=== PATIENT | male | born 1940 | race Caucasian/White ===

== ENCOUNTER → 2018-04-09 | Outpatient (CLI) | payer MEDICARE, OTHER ==
[~2018-04-09] MED LIST: ANDROGEL75 GM; ASA325 PO; LISINOPRIL10 MG PO; MEGACE40 MG PO; NRC7.5T PO; TESTOSTERONE5 GM; XARELTO20 MG PO; Z.0.LISINOPRIL20 MG PO; Z.0.NORVASC5 MG PO
--- NOTE | 2018-04-09 15:25 | Diagnostic Imaging Report ---
PROCEDURE: CT ABDOMEN AND PELVIS WITHOUT CONTRAST TECHNIQUE: The abdomen and pelvis were scanned utilizing a multidetector helical scanner from the diaphragm to the lesser trochanter after the oral administration of water. No IV contrast was administered per physician's request. Coronal and sagittal multiplanar reformations were obtained. COMPARISON: Patients [facility], CT, CT ABDOMEN/PELVIS , 10/18/2013, 13:57. INDICATIONS: HEMATURA FINDINGS: ABSENCE OF INTRAVENOUS CONTRAST DECREASES SENSITIVITY FOR DETECTION OF FOCAL LESIONS AND VASCULAR PATHOLOGY. LOWER THORAX: Mild bilateral lower lobe subpleural reticulation and bronchiectatic changes, which are slightly worsened since prior exam, consistent with mild fibrotic changes. HEPATOBILIARY: Stable 2.8 x 2.3 cm fluid density simple cyst in hepatic segment IV (series 3, image 34). Stable 1.1 x 1.0 cm fluid density simple cyst in hepatic segment VII (series 3, image 34). Normal hepatic size, and contour. No other focal lesions. No biliary ductal dilation. The bladder is unremarkable. SPLEEN: No splenomegaly. PANCREAS: No focal masses or ductal dilatation. ADRENALS: No adrenal nodules. KIDNEYS/URETERS: Right: New 2 mm nonobstructing calculus in the superior to mid aspect (series 3, image 53). No other renal or any ureteral calculi, hydronephrosis, or obstruction. 2.4 x 2.2 x 2.9 cm mostly exophytic fluid density simple cyst in the inferior pole (series 3, image 81). No other contour abnormalities or perinephric stranding. Left: No renal or ureteral calculi, hydronephrosis, or obstruction. No contour abnormalities. PELVIC ORGANS/BLADDER: The evaluation of the pelvis is limited by beam hardening artifact from right hip prosthesis. Visualized portions of the bladder are grossly unremarkable. Mild prostatic enlargement. Left pelvic phleboliths. PERITONEUM / RETROPERITONEUM: No free air or fluid. LYMPH NODES: No lymphadenopathy. VESSELS: Minimal atherosclerotic calcification of the distal abdominal aorta. GI TRACT: No bowel dilation or evidence of obstruction. Appendix is well identified and normal in caliber. BONES AND SOFT TISSUES: No acute bony abnormalities. No aggressive lytic lesions. Right total hip replacement. Degenerative changes in the lower thoracic and lumbosacral spine, worse at L4-L5, and L5-S1. Facet hypertrophy L3-S1. Small fat containing left femoral hernia. IMPRESSION: 1. new 2 mm nonobstructing calculus in the superior to mid right kidney. No other renal or any ureteral calculi, hydronephrosis, or obstruction. 2. Stable simple hepatic cysts. 3. Slight worsening of bilateral lower lobe subpleural reticulation and bronchiectasis, consistent with fibrotic changes. Teddy Kumar M.D. Dictated by: Teddy Kumar M.D. on 04/09/2018 at 15:29 Electronically approved by: Teddy Kumar M.D. on 04/09/2018 at 15:29
== END ==
LOC: CT 14:35
PROVIDERS: ATTEND Urology
DX: R31.0 Gross hematuria (principal)
CPT/HCPCS: 74176

== ENCOUNTER 2020-02-22 09:52 | Inpatient (IN) | payer MEDICARE, OTHER ==
[~2020-02-22] VITALS: Ht 180.3 cm; Wt 100.7 kg
[~2020-02-22 09:52] MED LIST changes: +COUMADIN3 MG PO; +MAXZIDE 37.5 M1 EACH PO; +TESTOSTERO30 MG/1.5 INJ
[2020-02-22] MEDS ORDERED: SODIUM CHLORIDE 0.9% 1000ML 1,000 ML IV STA (09:57)
[2020-02-22] MEDS ORDERED: ONDANSETRON HCL INJ 2MG/ML 2ML 2 MG/ML VIAL IV STA (09:57)
[2020-02-22] MEDS ORDERED: MORPHINE SULFATE INJ 4 MG/ML INJ 1ML IV STA (10:06)
[2020-02-22] MEDS ORDERED: MORPHINE SULFATE INJ 4 MG/ML INJ 1ML ONE (10:11)
[2020-02-22 10:31] LABS: CLARITY,URINE CLOUDY (CLEAR); COLOR,URINE ORANGE (YELLOW)
[2020-02-22 10:32] LABS: KETONES,URINE NEGATIVE (NEGATIVE); LEUKOCYTE ESTERASE ,URINE NEGATIVE (NEGATIVE); NITRITE,URINE NEGATIVE (NEGATIVE); PROTEIN,URINE DIPSTICK 1+ (NEGATIVE)
[2020-02-22 10:33] LABS: BILIRUBIN,URINE NEGATIVE (NEGATIVE); INR 0.96; PROTHROMBIN TIME 13.3 seconds (11.9-14.5); URINE UROBILINOGEN 0.2 mg/dL (0.2 - 1)
[2020-02-22 10:34] LABS: PARTIAL THROMBOPLASTIN TIME 32.8 seconds (23.8-35.5)
[2020-02-22 10:41] LABS: ALBUMIN 3.8 g/dL (3.5-5.0); ANION GAP 15.4 mmol/L (8-16); CALCIUM 9.6 mg/dL (8.4-10.2); CREATININE, SERUM 1.21 mg/dL (0.72-1.25); MAGNESIUM 2.1 MG/DL (1.3-2.1); POTASSIUM 4.4 mmol/L (3.5-5.1)
[2020-02-22 10:44] LABS: BACTERIA,URINE FEW /HPF; EPITHELIAL CELLS,URINE FEW /LPF; RBC,URINE >50 /HPF (0-5); WBC,URINE (MAN) >50 /HPF (0-5)
[2020-02-22 10:48] LABS: CREATINE KINASE MB 9.3 ng/mL (0-5.0)
--- NOTE | 2020-02-22 11:18 | Diagnostic Imaging Report ---
EXAMINATION: CHEST SINGLE (PORTABLE) INDICATION: Abdominal pain COMPARISON: None FINDINGS: LINES/TUBES:None LUNGS:The lungs are moderately inflated. Hazy left lung base opacities. PLEURA:No pleural effusion or pneumothorax. MEDIASTINUM:Mild cardiomegaly. BONES/SOFT TISSUES:No acute osseous injury. ABDOMEN:No free air under the diaphragm. IMPRESSION: Hazy left lung base opacities may represent aspiration and/or pneumonia in the proper clinical setting. Signed by: Vlad Mckinney MD on 02/22/2020 11:15 AM
--- NOTE | 2020-02-22 11:25 | Diagnostic Imaging Report ---
EXAM: CT Abdomen and Pelvis WITHOUT intravenous contrast INDICATION: Abdominal pain COMPARISON: Chest radiograph of the same day TECHNIQUE: Abdomen and pelvis were scanned utilizing a multidetector helical scanner from the lung base to the pubic symphysis without administration of IV contrast. Coronal and sagittal reformations were obtained. IV CONTRAST: None ORAL CONTRAST: Water COMPLICATIONS: None RADIATION DOSE: Total DLP: 800 mGy*cm Dose modulation, iterative reconstruction, and/or weight based adjustment of the mA/kV was utilized to reduce the radiation dose to as low as reasonably achievable. FINDINGS: LOWER THORAX: Reticular dependent left lower lobe and to a lesser extent right lower lobe opacities. Mild cardiomegaly. HEPATOBILIARY: 2.6 cm anterior right hepatic cyst. No other focal liver lesion. Unremarkable gallbladder. SPLEEN: No splenomegaly. PANCREAS: No focal masses or ductal dilatation. ADRENALS: No adrenal nodules. KIDNEYS/URETERS: 4 mm mid right ureteral calculus. Minimal right hydronephrosis. 2.9 cm right lower pole exophytic renal cyst. No left urinary calculi. Exophytic 2.0 cm left upper pole renal cyst. PELVIC ORGANS/BLADDER: Unremarkable. PERITONEUM / RETROPERITONEUM: No free air or fluid. LYMPH NODES: No lymphadenopathy. VESSELS: Unremarkable. GI TRACT: Diverticulosis without CT evidence of diverticulitis. No abnormal bowel thickening. No bowel obstruction. Normal appendix. BONES AND SOFT TISSUES: No acute osseous injury. No suspicious lytic or blastic lesions. Status post right total hip replacement. Degenerative changes of the visualized spine. IMPRESSION: 4 mm mid right ureteral calculus with associated minimal right hydronephrosis. No left urinary calculi. Reticular left lower lobe and to a lesser extent right lower lobe opacities likely represent chronic interstitial changes however superimposed aspiration or pneumonia could also have this appearance in the proper clinical setting. Signed by: Vlad Mckinney MD on 02/22/2020 11:22 AM
[2020-02-22] MEDS ORDERED: CEFTRIAXONE SOD 1 GM/NS 50 ML 50 ML IV ONE (11:30)
[2020-02-22] MEDS ORDERED: KETOROLAC TROMETHAMINE 30 MG/ML VIAL IV ONE (11:35)
[2020-02-22 11:39] LABS: BASOPHILS % 0.5 % (0.0-1.0); EOSINOPHILS # (AUTO) 0.1 (0.0-0.4); EOSINOPHILS % 0.7 % (0.0-6.0); HEMOGLOBIN 17.9 g/dL (14.0-18.0); LYMPHOCYTES # (AUTO) 1.3 (1.0-3.2); LYMPHOCYTES % 16.8 % (18.0-39.1); MEAN CORPUSCULAR HEMOGLOBIN 29.5 pg (28-32); MEAN CORPUSCULAR HGB CONC 32.5 g/dL (31-35); MEAN CORPUSCULAR VOLUME 90.8 fL (81-99); MONOCYTES # (AUTO) 0.8 (0.2-0.8); MONOCYTES % 11.1 % (4.4-11.3); NEUTROPHILS # (AUTO) 5.3 (2.1-6.9); NEUTROPHILS % 70.4 % (38.7-80.0); PLATELET COUNT 258 x10e3/uL (140-360); RED BLOOD COUNT 6.06 x10e6/uL (4.3-5.7); RED CELL DISTRIBUTION WIDTH 14.5 % (11.7-14.4)
[2020-02-22] MEDS ORDERED: MORPHINE SULFATE 2 MG/ML SYR 1ML IV PRN (12:00)
[2020-02-22] MEDS ORDERED: ONDANSETRON HCL INJ 2MG/ML 2ML 2 MG/ML VIAL IV PRN (12:00)
[2020-02-22] MEDS: MORPHINE SULFATE INJ 4 MG/ML INJ 1ML IV PRN ×2 (14:14→22:14)
[2020-02-22] MEDS: SODIUM CHLORIDE 0.9% 1000ML 1,000 ML IV SCH ×2 (14:14→22:14)
[2020-02-22 17:07] LABS: CREATINE KINASE MB 6.9 ng/mL (0-5.0)
--- NOTE | 2020-02-22 18:30 | NUR ---
RCD PT FROM ER BY WHEEL CHAIR PT IS ALERT AND ORIENTED VITALS CHECKED PT RESTING ON BED ,BED SIDE REPORT GIVEN TO ONCOMING NURSE
--- NOTE | 2020-02-22 19:00 | NUR ---
Received bedside shift report from day rn. pt admitted from er at 1830. Pt is alert and oriented x3. Respirations are regular and unlabored.Tele on. piv 20 g lt ac. ns infusing at 100 ml/hr. site healthy. pt instructed to use urinal when void and all urine to be strained.denies pain. call light witnin reach. bed in low position.
[2020-02-22 20:00] VITALS: BP 146/93
[2020-02-22] MEDS: CEFTRIAXONE SOD 1 GM/NS 50 ML 50 ML IV SCH (22:13)
[2020-02-22 23:45] VITALS: BP 146/93
[2020-02-23] MEDS: MORPHINE SULFATE INJ 4 MG/ML INJ 1ML IV PRN (03:14)
[2020-02-23 03:40] LABS: CREATINE KINASE MB 9.7 ng/mL (0-5.0)
[2020-02-23 05:38] LABS: BASOPHILS % 0.1 % (0.0-1.0); EOSINOPHILS % 0.1 % (0.0-6.0); HEMATOCRIT 50.5 % (38.2-49.6); HEMOGLOBIN 16.7 g/dL (14.0-18.0); LYMPHOCYTES # (AUTO) 0.6 (1.0-3.2); LYMPHOCYTES % 3.9 % (18.0-39.1); MEAN CORPUSCULAR HEMOGLOBIN 29.5 pg (28-32); MEAN CORPUSCULAR HGB CONC 33.1 g/dL (31-35); MEAN CORPUSCULAR VOLUME 89.2 fL (81-99); MONOCYTES # (AUTO) 1.3 (0.2-0.8); MONOCYTES % 9.1 % (4.4-11.3); NEUTROPHILS # (AUTO) 12.3 (2.1-6.9); NEUTROPHILS % 86.4 % (38.7-80.0); PLATELET COUNT 201 x10e3/uL (140-360); RED BLOOD COUNT 5.66 x10e6/uL (4.3-5.7); RED CELL DISTRIBUTION WIDTH 14.5 % (11.7-14.4)
[2020-02-23 05:45] LABS: ALBUMIN 3.3 g/dL (3.5-5.0); ALBUMIN/GLOBULIN RATIO 0.9 (0.8-2.0); ANION GAP 11.6 mmol/L (8-16); CALCIUM 8.2 mg/dL (8.4-10.2); CREATININE, SERUM 1.45 mg/dL (0.72-1.25); POTASSIUM 4.6 mmol/L (3.5-5.1)
--- NOTE | 2020-02-23 07:00 | NUR ---
RCD PT AT BED PT IS ALERT AND ORIENTED RESTING ON BED IV PATENT BY SALINE FLUSH BED LOW AND LOCKED CALL LIGHT IN REACH
[2020-02-23 07:10] VITALS: BP 132/97
[2020-02-23] MEDS ORDERED: FLONASE ALLERG9.9 ML (07:19)
[2020-02-23] MEDS ORDERED: ASTELIN (07:19)
[2020-02-23 08:20] VITALS: BP 128/81
[2020-02-23 08:37] VITALS: BP 128/81
[2020-02-23] MEDS: CEFTRIAXONE SOD 1 GM/NS 50 ML 50 ML IV SCH ×2 (09:36→22:50)
[2020-02-23 11:51] VITALS: BP 137/93
--- NOTE | 2020-02-23 12:00 | NUR ---
PT PASSED A SMALL STONE PAGED DR WERNER TO NOTIFY THAT
--- NOTE | 2020-02-23 12:26 | Diagnostic Imaging Report ---
Exam: KUB - 2 views Indication: Renal calculi Comparison: CT abdomen and pelvis 02/22/2020 Findings: No radiographically apparent renal calculi. 4 mm right ureteral calculus seen on the recent CT of 02/22/2020 is not as well appreciated on these radiographs. Nonobstructive bowel gas pattern. No free air. No acute osseous injury. Status post right total hip replacement. Degenerative changes of the visualized spine and left hip joint. Impression: No radiographically apparent renal calculi. 4 mm right ureteral calculus seen on recent CT is not as well appreciated on these radiographs. Signed by: Vlad Mckinney MD on 02/23/2020 12:23 PM
--- NOTE | 2020-02-23 12:30 | NUR ---
DR WERNER RETURNED THE CALL HE SAID PROBABLY ITS NOT REAL STONE PREPARE THE PT FOR SURGERY HE WILL DECIDE ON TOMORROW
--- NOTE | 2020-02-23 16:00 | NUR ---
PT GOING FOR PROCEDURE ON TOMORROW SIGNED CONSENT ,NPO AFTER MIDNIGHT
[2020-02-23 16:59] VITALS: BP 128/92
[2020-02-23 17:27] LABS: CREATINE KINASE MB 2.9 ng/mL (0-5.0)
--- NOTE | 2020-02-23 18:57 | NUR ---
PT RESTING ON BED BED SIDE REPORT GIVEN TO ONCOMING NURSE
--- NOTE | 2020-02-23 19:10 | NUR ---
BEDSIDE SHIFT REPORT RECEIVED FROM DAY RN. PT IS ALERT AND ORIENTED X3. AMBULATING IN HALLS. DENIES PAIN. VOIDING PER URINAL - ALL URINE STRAINED. RESPIRATIONS EVEN AND UNLABORED. TELE ON. SL 20G IN LEFT AC. LBM 2 DAYS AGO. URINE BLOODY AT TIMES THEN CLEAR. RESTING IN BED IN SEMI-FOWLERS POSITION WATCHING TV. CALL LIGHT WITHIN REAC. BED LOCKED AND IN LOW POSITION.PT INSTRUCTED WILL BE NPO AFTER 12MN FOR PROCEDURE BY DR CHRISTENSEN IN AM.PT VERBALIZED UNDERSTANDING.
[2020-02-23 20:00] VITALS: BP 137/87
[2020-02-24] VITALS (9 sets, daily range): BP systolic 116–163; BP diastolic 83–97
[2020-02-24] MEDS: MORPHINE SULFATE INJ 4 MG/ML INJ 1ML IV PRN ×2 (00:41→18:28)
[2020-02-24 05:24] LABS: BASOPHILS % 0.4 % (0.0-1.0); EOSINOPHILS # (AUTO) 0.1 (0.0-0.4); EOSINOPHILS % 1.4 % (0.0-6.0); HEMATOCRIT 51.3 % (38.2-49.6); HEMOGLOBIN 16.5 g/dL (14.0-18.0); LYMPHOCYTES % 9.7 % (18.0-39.1); MEAN CORPUSCULAR HEMOGLOBIN 29.3 pg (28-32); MEAN CORPUSCULAR HGB CONC 32.2 g/dL (31-35); MEAN CORPUSCULAR VOLUME 91.1 fL (81-99); MONOCYTES # (AUTO) 1.2 (0.2-0.8); NEUTROPHILS # (AUTO) 7.7 (2.1-6.9); PLATELET COUNT 201 x10e3/uL (140-360); RED BLOOD COUNT 5.63 x10e6/uL (4.3-5.7); RED CELL DISTRIBUTION WIDTH 14.4 % (11.7-14.4)
[2020-02-24 05:57] LABS: ALANINE AMINOTRANSFERASE 14 IU/L (0-55); ALBUMIN 3.1 g/dL (3.5-5.0); ALBUMIN/GLOBULIN RATIO 0.9 (0.8-2.0); ALKALINE PHOSPHATASE 54 IU/L (40-150); ANION GAP 9.5 mmol/L (8-16); BLOOD UREA NITROGEN 20 mg/dL (7-26); BUN/CREATININE RATIO 20 (6-25); CALCIUM 8.5 mg/dL (8.4-10.2); CARBON DIOXIDE 28 mmol/L (22-29); CHLORIDE 105 mmol/L (98-107); CREATININE, SERUM 1.02 mg/dL (0.72-1.25); EST GLOMERULAR FILTRATION RATE > 60 ML/MIN (60-); GLUCOSE 85 mg/dL (74-118); POTASSIUM 4.5 mmol/L (3.5-5.1); SODIUM 138 mmol/L (136-145)
--- NOTE | 2020-02-24 07:03 | NUR ---
BEDSIDE SHIFT REPORT RECEIVED FROM PM NURSE. PT AWAKE, ALERT, ORIENTED, NO SIGNS OF DISTRESS, SITTING UP IN BED, WILL CONTINUE TO MONITOR.
[2020-02-24] MEDS: CEFTRIAXONE SOD 1 GM/NS 50 ML 50 ML IV SCH ×2 (09:39→22:30)
[2020-02-24] MEDS ORDERED: B&O 60MG R/S 60 MG SUPP PR ONE (13:31)
[2020-02-24] MEDS ORDERED: IOPAMIDOL 300MG/ML 50ML INFUS..BTL IV ONE (13:31)
--- NOTE | 2020-02-24 13:47 | NUR ---
PT LEFT FOR OR; LEFT IN STABLE CONDITION.
[2020-02-24] MEDS ORDERED: FENTANYL CITRATE/PF 100MCG/2 ML INJ ONE (15:09)
[2020-02-24] MEDS ORDERED: B&O 60MG R/S 60 MG SUPP PR PRN (15:30)
[2020-02-24] MEDS ORDERED: ACETAMINOPHEN/CODEINE 300MG - 30MG TAB PO PRN (15:30)
--- NOTE | 2020-02-24 15:55 | NUR ---
REPORT FROM RECOVERY: PT HAD CNR, RIGHT URETEROSCOPY WITH STENT PLACEMENT. PT HAS NO C/O PAIN. ORDERED CARDIAC DIET. PT'S LAST VITAL SIGNS- 131/91, HR 86, RESPIRATIONS 16/MIN, 98.8 TEMP, 95% ON RA.
--- NOTE | 2020-02-24 16:07 | Diagnostic Imaging Report ---
OR Fluoroscopy: IMPRESSION: Fluoroscopy service provided in the OR. Interpretation not requested. Signed by: Joey Polanco MD on 02/24/2020 4:04 PM
[2020-02-24] MEDS ORDERED: PHENYLEPHRINE HCL 1% 10 MG/ML VIAL ONE (18:20)
[2020-02-24] MEDS ORDERED: LIDOCAINE HCL 2% LOCAL INJ 5 ML SDV VIAL INJ ONE (18:20)
[2020-02-24] MEDS ORDERED: ONDANSETRON HCL INJ 2MG/ML 2ML 2 MG/ML VIAL ONE (18:20)
[2020-02-24] MEDS ORDERED: PROPOFOL IV EMULSION 10 MG/ML 20 ML VIAL ONE (18:20)
[2020-02-24] MEDS ORDERED: SEVOFLURANE INHAL SOLN 250 ML PEN BTL ONE (18:20)
[2020-02-24] MEDS: DOCUSATE SODIUM 100 MG CAP PO SCH (18:21)
[2020-02-24] MEDS: PHENAZOPYRIDINE HCL 100 MG TAB PO SCH (18:21)
--- NOTE | 2020-02-24 19:10 | NUR ---
BEDSIDE SHIFT REPORT RECEIVED FROM DAY RN. PT IS ALERT AND ORIENTED X3. DENIES PAIN. S/P CYSTOSCOPY AND STONE REMOVAL- STENT PLACED. PT CONTINUES TO VOID IN URINAL AND STRAIN ALL URINE. SL 20 G LT AC- SITE HEALTHY. TELE ON. RESPIRATIONS ARE EVEN AND UNLABORED. PT REPORT VOIDING WITHOUT DIFFICULTY. PT RESTING IN BED IN SEMI-FOWLERS POSITION WATCHING TV. CALL LIGHT WITHIN REACH. BED LOCKED AND IN LOW POSITION. PT TO CALL FOR HELP WHEN GET UP TO BATHROOM AFTER PAIN MED.
--- NOTE | 2020-02-24 22:09 | Operative Report ---
DATE OF PROCEDURE: 02/24/2020 SURGEON: Lobo Martínez MD PREOPERATIVE DIAGNOSES: 1. Right hydronephrosis. 2. Gross hematuria. 3. Distal right ureteral stricture. OPERATIONS PERFORMED: 1. Cystourethroscopy with calibration and dilation of ureteral stricture (separate procedure performed for the diagnosis of stricture). 2. Cystourethroscopy with bilateral ureteral catheterization and retrograde ureteropyelography. 3. Interpretation of retrograde ureteropyelography. 4. Right ureteroscopy with dilation of ureteral stricture (separate procedure performed for the diagnosis of stricture). 5. Cystourethroscopy with insertion right indwelling ureteral stent (separate procedure performed to relieve the hydronephrosis). 6. Interpretation of retrograde ureteropyelography. ANESTHESIA: General. COMPLICATIONS: None. CLINICAL SUMMARY: Ayad Allred is a 79-year-old man with a prior history of passing small kidney stones that never needed medical intervention. The patient is a longstanding patient of mine with prostate cancer. The patient also had gross hematuria. He then developed severe pain, was found to be in the renal colic with distal right ureteral stone. The patient passed a small stone, which we sent to the lab for chemical analysis, and persistent hematuria. He is therefore, brought to the operating room for the above procedures. He is aware of the risks of bleeding, infection, injury to the adjacent structures, need for additional procedures and elected to proceed. The procedure was done during the COVID-19 emergency situation due to the fact that it is not elective. The patient has active bleeding and pain, and his procedure cannot wait and is therefore not elective. OPERATIVE PROCEDURE IN DETAIL: Informed consent was verified. Ayad Allred was properly identified, taken to the operating room, placed on the cystoscopy table in supine position. Anesthesia was uneventfully begun. The patient was then carefully gently repositioned in the dorsal lithotomy position with all pressure points well padded. His genitalia were prepared and draped in usual sterile fashion. 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 This stricture was dilated utilizing the visual obturator and the cystoscope sheath best calibrating it to 21-Venezuelan in size. We then went through the normal sphincteric region, went through the prostate bed, which was relatively open status post transurethral resection of some degree of regrowth of tissue. We went to the patient's bladder where panendoscopy revealed trabeculation, but no tumors, no stones, no diverticula. The right ureteral orifice was erythematous. The left side was unremarkable. An open-ended ureteral catheter was used to cannulate each ureter and retrograde ureteropyelography was performed. We introduced the guidewire into the right collecting system and observed fluoroscopically. We then utilized the semi-rigid ureteroscope. We passed alongside the guidewire up into the right ureter. As we did that, there was a narrowing in the distal ureter. We then got past the narrowing of the ureter, which was significantly dilated, it was then entered. No stones were identified. The ureteroscope was withdrawn. With cystoscopic and fluoroscopic guidance, a right-sided indwelling ureteral stent was then placed. It was coiled in the patient's kidney as well as in the patient's bladder. The retaining sutures were cut short. Interpretation of retrograde ureteropyelography contrast was instilled in retrograde fashion bilaterally. The left side was unremarkable. There were no tumors. There were no stones. There were no diverticula. An unobstructed drainage was observed fluoroscopically. J-hooking was noted. The right side exhibited narrowing at the distal ureter with hydroureteronephrosis with significant ureterectasis proximal to this area. The stent was in good position, coiled the patient's kidneys as well as the patient's bladder at the end of the case. The patient's bladder was drained. Cystoscope was withdrawn. Belladonna and opium suppository were placed revealing a flat, nonfluctuant, but scarred prostate with some degree of firmness. The patient was then uneventfully reversed from anesthesia and taken to recovery room in stable condition. There were no complications to this procedure. The patient tolerated the procedure well. Explicit postop instructions were given. We will follow the patient up by returning him to the operating room in about a month to remove his stent and evaluate for any residual stone. In the meantime, we will definitely pursue metabolic stone workup in hopes of preventing stone recurrence in this longstanding patient of ours. Lobo Martínez MD [place]/MODL /[id number] cc: Clement Moser MD
[2020-02-25] VITALS (7 sets, daily range): BP systolic 141–167; BP diastolic 85–101
[2020-02-25] MEDS: MORPHINE SULFATE INJ 4 MG/ML INJ 1ML IV PRN ×2 (01:30→09:45)
[2020-02-25 06:21] LABS: BASOPHILS # (AUTO) 0.1 (0.0-0.1); BASOPHILS % 0.5 % (0.0-1.0); EOSINOPHILS # (AUTO) 0.2 (0.0-0.4); EOSINOPHILS % 1.7 % (0.0-6.0); HEMATOCRIT 50.5 % (38.2-49.6); HEMOGLOBIN 16.4 g/dL (14.0-18.0); LYMPHOCYTES # (AUTO) 0.9 (1.0-3.2); LYMPHOCYTES % 8.8 % (18.0-39.1); MEAN CORPUSCULAR HEMOGLOBIN 29.4 pg (28-32); MEAN CORPUSCULAR HGB CONC 32.5 g/dL (31-35); MEAN CORPUSCULAR VOLUME 90.5 fL (81-99); MONOCYTES # (AUTO) 1.1 (0.2-0.8); MONOCYTES % 11.4 % (4.4-11.3); NEUTROPHILS # (AUTO) 7.7 (2.1-6.9); NEUTROPHILS % 77.1 % (38.7-80.0); PLATELET COUNT 203 x10e3/uL (140-360); RED BLOOD COUNT 5.58 x10e6/uL (4.3-5.7); RED CELL DISTRIBUTION WIDTH 14.5 % (11.7-14.4)
[2020-02-25 06:40] LABS: ANION GAP 12.5 mmol/L (8-16); BLOOD UREA NITROGEN 24 mg/dL (7-26); BUN/CREATININE RATIO 24 (6-25); CALCIUM 8.4 mg/dL (8.4-10.2); CARBON DIOXIDE 26 mmol/L (22-29); CHLORIDE 103 mmol/L (98-107); EST GLOMERULAR FILTRATION RATE > 60 ML/MIN (60-); GLUCOSE 104 mg/dL (74-118); POTASSIUM 4.5 mmol/L (3.5-5.1); SODIUM 137 mmol/L (136-145)
--- NOTE | 2020-02-25 07:00 | NUR ---
BEDSIDE SHIFT REPORT RECEIVED FROM THE MEMBER SERVICE SPECIALIST RN. EDUCATED PT ABOUT FALL PRECAUTIONS. PT VERBALIZED UNDERSTANDING. CALL LIGHT WITH IN EASY REACH. INSTRUCTED PT TO USE CALL LIGHT FOR ALL THE NEEDS. BED IS LOW AND LOCKED. SIDE RAILS X2. PT DENIES NEEDS AT THIS TIME.
--- NOTE | 2020-02-25 08:00 | NUR ---
PAGED DR. WERNER REGARDING STARTING LOVENOX PER DR. MEDELLIN. WILL INFORM LATER PER DR. WERNER.
--- NOTE | 2020-02-25 08:56 | Progress Note ---
DATE: SUBJECTIVE: This patient came in with urinary tract infection, urolithiasis, and hydronephrosis. The patient underwent surgery. Yesterday, the patient had a right ureteroscopy and stent placement. The patient is status post surgery, did pass some blood today. Otherwise, pain is controlled on current pain medication. The patient has no chest pain, no shortness of breath. OBJECTIVE: VITAL SIGNS: Temperature is 97.9, pulse of 76, respirations of 20, blood pressure is 141/91. HEENT: Normocephalic and atraumatic. Pupils are reactive. ABDOMEN: Nondistended. Tenderness present in the suprapubic area. EXTREMITIES: No clubbing, no cyanosis, no edema. LABORATORY VALUES: White count is 9.98, hemoglobin of 16.4, hematocrit 50.5. Chemistry shows sodium of 137, potassium 4.5, BUN of 24, creatinine of 1. EGFR is above 60. Microbiology; urine culture, no growth in the last 36 to 48 hours. IMAGING: From yesterday retrograde pyelogram. ASSESSMENT: Mr. Ayad Allred is a 79-year-old with: 1. Urolithiasis. 2. Pyelonephritis. 3. Interstitial nephritis. 4. Urinary tract infection and calculus of the ureter with . PLAN: Continue antibiotic. The patient is on cefepime. White count is normal. The patient will continue on fluids. Continue current home medications. Acute kidney injury is better. BPH and history of prostate cancer, had been seen by Dr. Martínez. Urinary colic seems to be much better. Further recommendation per clinical course. We will continue to monitor the patient and follow up with the patient on a regular basis. MD ELÍAS Amador/SUMMERL /[id number]
[2020-02-25] MEDS: PHENAZOPYRIDINE HCL 100 MG TAB PO SCH ×3 (09:27→17:26)
[2020-02-25] MEDS: CEFTRIAXONE SOD 1 GM/NS 50 ML 50 ML IV SCH ×2 (09:27→22:00)
[2020-02-25] MEDS: DOCUSATE SODIUM 100 MG CAP PO SCH ×2 (09:27→17:26)
--- NOTE | 2020-02-25 16:00 | NUR ---
PAGEAnkush MEDELLIN AND INFORMED PT BP 167/93
[2020-02-25] MEDS ORDERED: TRIAMTERENE/HCTZ 37.5-25 MG TAB PO SCH (17:00)
--- NOTE | 2020-02-25 17:10 | NUR ---
PT TAKES MAXZIDE HALF OF THE TABLET. PER PHARMACY NO TAB ONLY CAPSULE AVAILABLE. D/C MAXZIDE AND START NORVASC 5 MG PO DAILY PER DR. MEDELLIN.
[2020-02-25] MEDS: AMLODIPINE BESYLATE 5 MG TAB PO SCH (17:27)
--- NOTE | 2020-02-25 19:05 | NUR ---
Bedside nursing report completed with morning nurse. Pt alert and oriented to name, lying in bed HOB 45. Denies pain at this time. Call light within reach. Bed low and locked.
--- NOTE | 2020-02-25 19:10 | NUR ---
BEDSIDE SHIFT REPORT GIVEN TO THE BANKING TEACHER RN. PT DENIED FURTHER NEEDS.
[2020-02-26] VITALS (8 sets, daily range): BP systolic 134–161; BP diastolic 89–102
--- NOTE | 2020-02-26 07:00 | NUR ---
Received bedside shift report from off going nurse. Patient is in stable condition, no s/s of distress noted. Telemetry applied and working. IV to the left AC Asymptomatic and patient, with transparent dressing applied C/D/I. Bed in lowest position and locked. Call light within reach.
--- NOTE | 2020-02-26 07:15 | NUR ---
Bedside rounds with morning nurse. Pt alert, no acute distress noted.
[2020-02-26] MEDS: AMLODIPINE BESYLATE 5 MG TAB PO SCH (08:34)
[2020-02-26] MEDS: DOCUSATE SODIUM 100 MG CAP PO SCH ×2 (08:34→17:02)
[2020-02-26] MEDS: PHENAZOPYRIDINE HCL 100 MG TAB PO SCH ×3 (08:35→17:02)
--- NOTE | 2020-02-26 10:00 | Progress Note ---
DATE: SUBJECTIVE: The patient is a 79-year-old male who comes in with urolithiasis status post retrograde and stent placement. The patient is still being urinating blood and still continues to have some pain in the abdominal area. Currently, medications include amlodipine, Rocephin, and morphine as needed for pain control. The patient has a history of protein C deficiency and was on warfarin for this. No complaints. OBJECTIVE: VITAL SIGNS: Temperature is afebrile, 97.9 is T-max, pulse of 85, respirations 17, blood pressure is 134/102, pulse oximetry 95%. HEENT: Normocephalic and atraumatic. Pupils are reactive to light and accommodation. CVS: S1 and S2 normal. Regular rhythm. Suprapubic tenderness present. EXTREMITIES: No clubbing, no cyanosis, no edema. LABORATORY VALUES: White count was 9.98, hemoglobin of 16.5, hematocrit of 50.5, slight left shift present. Chemistries are within normal limits. BUN and creatinine normalized. ASSESSMENT AND PLAN: Mr. Ayad Allred with. 1. Urolithiasis status post retrograde status post stent. 2. Hypertension, we will add losartan 50 mg twice a day to his regimen in addition to the Norvasc. 3. History of protein-C deficiency. We will restart his warfarin once okay with Urology. SCDs in place. Further recommendation per clinical course. We will continue to monitor the patient. MD ELÍAS Amador/MODL /[id number]
[2020-02-26] MEDS: LOSARTAN POTASSIUM 100 MG TAB PO SCH ×2 (10:45→17:02)
[2020-02-26] MEDS: CEFTRIAXONE SOD 1 GM/NS 50 ML 50 ML IV SCH ×2 (10:59→22:00)
[2020-02-26] MEDS ORDERED: ONDANSETRON HCL 4 MG ORAL DISINTEGRATING TAB PO PRN (14:15)
--- NOTE | 2020-02-26 19:05 | NUR ---
Completed bedside shift report and rounding with on coming night nurse. Patient is in stable condition, no s/s of distress noted. Telemetry applied and working. IV to the left AC Asymptomatic and patient, with transparent dressing applied C/D/I. Bed in lowest position and locked. Call light within reach.
--- NOTE | 2020-02-26 19:20 | NUR ---
Completed bedside nursing report with morning nurse. Pt alert and oriented to name, lying in bed HOB 30. Denies pain at this time. Call light within reach. Bed low and locked.
[2020-02-26] MEDS: MORPHINE SULFATE INJ 4 MG/ML INJ 1ML IV PRN (22:15)
[2020-02-27] VITALS (8 sets, daily range): BP systolic 139–148; BP diastolic 82–97
[2020-02-27 05:55] LABS: BLOOD UREA NITROGEN 17 mg/dL (7-26); BUN/CREATININE RATIO 21 (6-25); CALCIUM 8.5 mg/dL (8.4-10.2); CARBON DIOXIDE 24 mmol/L (22-29); CHLORIDE 105 mmol/L (98-107); CREATININE, SERUM 0.81 mg/dL (0.72-1.25); EST GLOMERULAR FILTRATION RATE > 60 ML/MIN (60-); GLUCOSE 91 mg/dL (74-118); SODIUM 137 mmol/L (136-145)
--- NOTE | 2020-02-27 07:15 | NUR ---
Report given to morning nurse. Patient is in stable condition, no s/s of distress noted. Tele in place. 20g IV rt FA intact. Bed low and locked. Call light within reach.
--- NOTE | 2020-02-27 07:44 | NUR ---
PATIENT IN BED RESTING WITH NO DISTRESS. SERIAL URINE IN PROGRESS. BED IN LOWER POSITION, CALL LIGHT AT REACH.
[2020-02-27] MEDS: LOSARTAN POTASSIUM 100 MG TAB PO SCH ×2 (09:18→17:19)
[2020-02-27] MEDS: DOCUSATE SODIUM 100 MG CAP PO SCH ×2 (09:18→17:18)
[2020-02-27] MEDS: AMLODIPINE BESYLATE 5 MG TAB PO SCH (09:18)
[2020-02-27] MEDS: PHENAZOPYRIDINE HCL 100 MG TAB PO SCH ×3 (09:19→18:07)
[2020-02-27] MEDS: CEFTRIAXONE SOD 1 GM/NS 50 ML 50 ML IV SCH ×2 (09:58→21:33)
--- NOTE | 2020-02-27 10:40 | NUR ---
Pt. expressed no spiritual or emotional concerns at this time. Racing Secretary provided hospitality. No need to follow at his time. NOEL Ram Spiritual Care Department O: [phone]
--- NOTE | 2020-02-27 11:19 | NUR ---
PATIENT AMBULATING BY SELF IN HALLWAY, NO COMPLAIN VOICED.
[2020-02-27] MEDS ORDERED: ENOXAPARIN 30 MG/0.3 ML SYR SC ONE (14:00)
--- NOTE | 2020-02-27 15:54 | NUR ---
NOTIFIED OF UROLOGIST RECOMMENDATION, NEW ORDER RECEIVED.
--- NOTE | 2020-02-27 16:48 | NUR ---
Nutrition Screen Note RD Recommendation for Physician: -Continue current diet as ordered Plan of Care: RD following, monitoring for tolerance and adequacy Nutrition reason for involvement: Length of stay Primary Diagnose(s): ureterolithiasis, UTI PMH: prostate cancer, PE, HTN Ht: 71 in Wt:222 lb BMI: 31.0 kg/m2 IBW:[address] Assessment: (02/27/20) Chart reviewed. Labs and meds reviewed. Pt is a 79 year old male admitted with ureterolithiasis and UTI. Pt had a right ureteroscopy with stent placement and cystoscopy retrograde pyelogram on 02/23. Pt was sleeping at time of visit. It is recorded that pt has been consuming 75-100% of meals during admission. Per weight history, pt has a previous weight of 225 lbs in December 2014; therefore, no significant weight loss is evident. Will continue to monitor unless consulted sooner Current Diet: cardiac diet Malnutrition Evaluation (02/27/20) The patient does not meet criteria for a specified degree of malnutrition at this time. Will re-evaluate at follow-up as appropriate. Diet Education Needs Assessment: RD is available for diet education as needed Nutrition Care Level: low Signed: Allegra Hidalgo, LOUISE, LD
--- NOTE | 2020-02-27 19:20 | NUR ---
pt walking rounds complete, pt sitting at bedside, resp even and unlabored at this time. will cont to monitor call light in reach.
--- NOTE | 2020-02-27 22:16 | NUR ---
consent signed for procedure.
[2020-02-28] VITALS (9 sets, daily range): BP systolic 114–163; BP diastolic 68–97
--- NOTE | 2020-02-28 01:26 | NUR ---
pt asleep resp even and unlabored, lying on his right side. call light in reach.
[2020-02-28 06:17] LABS: BASOPHILS # (AUTO) 0.1 (0.0-0.1); BASOPHILS % 0.6 % (0.0-1.0); EOSINOPHILS # (AUTO) 0.2 (0.0-0.4); HEMATOCRIT 49.7 % (38.2-49.6); HEMOGLOBIN 16.6 g/dL (14.0-18.0); LYMPHOCYTES # (AUTO) 0.8 (1.0-3.2); LYMPHOCYTES % 10.5 % (18.0-39.1); MEAN CORPUSCULAR HGB CONC 33.4 g/dL (31-35); MEAN CORPUSCULAR VOLUME 89.9 fL (81-99); MONOCYTES % 12.4 % (4.4-11.3); NEUTROPHILS # (AUTO) 5.9 (2.1-6.9); NEUTROPHILS % 74.1 % (38.7-80.0); PLATELET COUNT 222 x10e3/uL (140-360); RED BLOOD COUNT 5.53 x10e6/uL (4.3-5.7); RED CELL DISTRIBUTION WIDTH 13.7 % (11.7-14.4)
[2020-02-28 06:50] LABS: ALANINE AMINOTRANSFERASE 12 IU/L (0-55); ALBUMIN 3.1 g/dL (3.5-5.0); ALBUMIN/GLOBULIN RATIO 0.8 (0.8-2.0); ALKALINE PHOSPHATASE 64 IU/L (40-150); ANION GAP 12.1 mmol/L (8-16); BLOOD UREA NITROGEN 17 mg/dL (7-26); BUN/CREATININE RATIO 18 (6-25); CARBON DIOXIDE 25 mmol/L (22-29); CHLORIDE 105 mmol/L (98-107); CREATININE, SERUM 0.95 mg/dL (0.72-1.25); EST GLOMERULAR FILTRATION RATE > 60 ML/MIN (60-); GLUCOSE 96 mg/dL (74-118); MAGNESIUM 1.9 MG/DL (1.3-2.1); POTASSIUM 4.1 mmol/L (3.5-5.1); SODIUM 138 mmol/L (136-145)
--- NOTE | 2020-02-28 07:02 | NUR ---
walking rounds complete, report given to on coming nurse. pt stable at shift change.
--- NOTE | 2020-02-28 07:21 | NUR ---
PATIENT IN BED RESTING WITH EYES CLOSED. REMAINS NPO FOR A PROCEDURE. BED IN LOWER POSITION, CALL LIGHT AT REACH.
[2020-02-28] MEDS: LOSARTAN POTASSIUM 100 MG TAB PO SCH ×2 (09:00→17:08)
[2020-02-28] MEDS: PHENAZOPYRIDINE HCL 100 MG TAB PO SCH ×3 (09:00→18:23)
[2020-02-28] MEDS: DOCUSATE SODIUM 100 MG CAP PO SCH ×2 (09:00→17:08)
[2020-02-28] MEDS: CEFTRIAXONE SOD 1 GM/NS 50 ML 50 ML IV SCH ×2 (10:00→22:00)
--- NOTE | 2020-02-28 11:45 | NUR ---
PATIENT OFF UNIT FOR THE PROCEDURE.
[2020-02-28] MEDS ORDERED: HYDROCODONE/APAP 5MG-325MG TAB PO PRN (13:45)
--- NOTE | 2020-02-28 15:02 | NUR ---
PATIENT BACK TO UNIT FROM A PROCEDURE. HAD A LEFT CARPAL TUNNEL RELEASE. REJI WRAP DRESSING TO LEFT HAND DRY AND INTACT. DENIED PAIN AT THIS TIME. V/S 96.2-85-18-143/89 AND95% ON RA. BED IN LOWER POSITION, CALL LIGHT AT REACH.
[2020-02-28] MEDS: AMLODIPINE BESYLATE 5 MG TAB PO SCH (16:39)
[2020-02-28] MEDS ORDERED: FENTANYL CITRATE/PF 100MCG/2 ML INJ ONE (18:48)
--- NOTE | 2020-02-28 19:10 | NUR ---
Patient visited in room during nursing rounds. Patient alert and oriented x3. S/P Cystoscopy with stent placement on 02/24/20 and S/P Left carpal tunnel release surgery on 02/28/20. Left hand wrapped with surgical dressing and sam bandage and being applied with cold compress intermittently. Pt ambulatory in room prn. Call aguero within reach. Will monitor pt closely.
[2020-02-28] MEDS ORDERED: CEFAZOLIN SOD 1 GM VIAL ONE (19:57)
[2020-02-28] MEDS ORDERED: DEXAMETHASONE SOD PHOS INJ 4 MG/ML VIAL ONE (19:57)
[2020-02-28] MEDS ORDERED: ONDANSETRON HCL INJ 2MG/ML 2ML 2 MG/ML VIAL ONE (19:57)
[2020-02-28] MEDS ORDERED: PROPOFOL IV EMULSION 10 MG/ML 20 ML VIAL ONE (19:57)
[2020-02-28] MEDS ORDERED: LIDOCAINE HCL 2% LOCAL INJ 5 ML SDV VIAL INJ ONE (19:57)
[2020-02-28] MEDS ORDERED: SEVOFLURANE INHAL SOLN 250 ML PEN BTL ONE (19:57)
[2020-02-28] MEDS ORDERED: EPHEDRINE SULFATE INJ 50 MG/ML VIAL ONE (19:57)
[2020-02-28] MEDS ORDERED: SODIUM CHLORIDE 0.9% 250ML 250 ML ONE (21:57)
[2020-02-29 05:22] VITALS: BP 127/76
--- NOTE | 2020-02-29 06:22 | Discharge Summary ---
DISCHARGE DIAGNOSES: 1. Kidney stone, status post stent. 2. Hematuria. 3. History of Factor V Leiden deficiency. 4. Hypertension. 5. Status post carpal tunnel syndrome surgery on the left. HISTORY OF PRESENT ILLNESS AND HOSPITAL COURSE: The patient is a gentleman, who presented with flank pain and was found to have a kidney stone. He actually was then seen by Dr. Martínez, who performed a pyelogram with stent placement, postprocedure was complicated by a significant amount of gross hematuria that was still present at discharge, but improved upcoming surgery for carpal tunnel surgery, it was felt best to go ahead and do now since the patient has a history of coagulation defect and he is currently off his anticoagulants with hematuria. It was decided that it would be best to go ahead to do carpal tunnel surgery while present in the hospital due to the hematuria and the coagulation defect. Surgery was performed by Dr. Washington without any issues. Postop, the patient did very well. I had a discussion with him about restarting Lovenox but he did not want to do the Lovenox shots. He said he would just resume his Coumadin treatment, which I discussed has put at some increased risk due to Coumadin taken a few days to kick in and he said that he was okay with those risks, so he was discharged home with continuation of his home medications and will follow up with his PCP in 1 week as well as with Dr. Washington as well as with Dr. Martínez. Please see hospital chart for full details. MD MILTON Jernigan/MIGUEL /[id number]
--- NOTE | 2020-02-29 07:00 | NUR ---
RCD PT AT BED PT IS ALERT AND ORIENTED PT RESTING ON BED NO SIGNS OF ANY DISTRESS NOTED IV PATENT BY SALINE FLUSH BED LOW AND LOCKED CALL LIGHT IN REACH
[2020-02-29 08:00] VITALS: BP 125/94
[2020-02-29] MEDS: LOSARTAN POTASSIUM 100 MG TAB PO SCH ×2 (08:09→09:00)
[2020-02-29] MEDS: DOCUSATE SODIUM 100 MG CAP PO SCH ×2 (08:09→09:00)
[2020-02-29] MEDS: PHENAZOPYRIDINE HCL 100 MG TAB PO SCH ×2 (08:11→09:00)
[2020-02-29] MEDS: AMLODIPINE BESYLATE 5 MG TAB PO SCH ×2 (08:11→09:00)
[2020-02-29] MEDS ORDERED: TYLENOL # 31 EA PO (08:17)
[2020-02-29 08:49] VITALS: BP 124/94
--- NOTE | 2020-02-29 10:00 | NUR ---
PT WENT HOME IN SAFE CONDITION WITH HIS DAUGHTER
== END 2020-02-29 10:22 | disposition home or self-care (01) | DRG 659 ==
LOC: ER 09:52 → ERHOLD 11:40 → MED/SURG2 18:40
PROVIDERS: ADMIT Internal Medicine; ATTEND Internal Medicine
PROC: BT1D1ZZ Fluoroscopy of Right Kidney, Ureter and Bladder using Low Osmolar Contrast (ICD-10-PCS; 2020-02-24)
PROC: 0T768DZ Dilation of Right Ureter with Intraluminal Device, Via Natural or Artificial Opening Endoscopic (ICD-10-PCS; 2020-02-24 09:30)
PROC: 0PN Upper Bones, Release (ICD-10-PCS; principal; 2020-02-28 11:00)
DX: N13.6 Pyonephrosis (principal); J18.9 Pneumonia, unspecified organism; N12 Tubulo-interstitial nephritis, not specified as acute or chronic; N17.9 Acute kidney failure, unspecified; G56.00 Carpal tunnel syndrome, unspecified upper limb; R31.0 Gross hematuria; N40.0 Benign prostatic hyperplasia without lower urinary tract symptoms; Z86.711 Personal history of pulmonary embolism
CPT/HCPCS: 36415; 71045; 74018; 74176; 74420; 80048; 80053; 81001; 82550; 82553; 82948; 83735; 83970; 84484; 84550; 85025; 85610; 85730; 87086; 87635; 88300; 93005; 99284; C1769; C2617; J0690; J0696; J1100; J1650; J1885; J2001; J2270; J2370; J2405; J3010; J7030; J7050

== ENCOUNTER 2020-03-31 16:00 | Emergency (ER) | payer MEDICARE ==
[~2020-03-31] VITALS: Ht 180.3 cm; Wt 100.7 kg
[~2020-03-31 16:00] MED LIST changes: +ASTELIN; +FLONASE ALLERG9.9 ML; +TYLENOL # 31 EA PO
--- NOTE | 2020-03-31 16:18 | Emergency Department Note ---
History of Present Illnes History of Present Illness Chief Complaint: Extremity Trauma/Pain History of Present Illness This is a 79 year old male with wounds sustained from a gardening tool to his Left 4th and 5th digit . 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 Any updates have been documented here. Past Medical History Recent Fever: No Clinical Suspicion of Infectio: No New/Unexplained Change in Ment: No Past Medical History: Hypertension, Asthma, Cancer, Kidney Stones, UTI's, GERD, DVT/PE Other Medical History: prostate cancer- tx radiation and chemo PE x2 takes coumadin keep inr 1.8 Past Surgical History: Hernia Repair Other Surgery: hemmrhoid surgery Social History Smoking Cessation: Never Smoker Alcohol Use: None Any Illegal Drug Use: No Other Last Tetanus: >5 YEARS Review of Systems Review of Systems Constitutional: Reports no symptoms EENTM: Reports no symptoms Cardiovascular: Reports no symptoms Respiratory: Reports no symptoms Gastrointestinal: Reports no symptoms Genitourinary: Reports no symptoms Musculoskeletal: Reports no symptoms Integumentary: Reports other (laceration and bleeding wond) Neurological: Reports no symptoms Psychological: Reports no symptoms Endocrine: Reports no symptoms Hematological/Lymphatic: Reports no symptoms Physical Exam Related Data Allergies: Coded Allergies: No Known Allergies (Unverified , 03/11/11) Triage Vital Signs Vital Signs Date Time Temp Pulse Resp B/P (MAP) Pulse Ox O2 Delivery O2 Flow Rate FiO2 03/31/20 16:31 98.4 87 18 143/103 100 Vital signs reviewed: Yes Physical Exam CONSTITUTIONAL Constitutional: Present well-developed, Present well-nourished HENT HENT: Present normocephalic, Present atraumatic, Present oropharynx clear/moist, Present nose normal HENT L/R: Present left ext ear normal, Present right ext ear normal EYES Eyes: Reports PERRL, Reports conjunctivae normal NECK Neck: Present ROM normal PULMONARY Pulmonary: Present effort normal, Present breath sounds normal CARDIOVASCULAR Cardiovascular: Present regular rhythm, Present heart sounds normal, Present capillary refill normal, Present normal rate GASTROINTESTINAL Abdominal: Present soft, Present nontender, Present bowel sounds normal GENITOURINARY Genitourinary: Present exam deferred SKIN Skin: Present other (2 cm laceration distal L 4th digit. Avulsion injury of the 5th digit with bleeding to the wound. ) MUSCULOSKELETAL Musculoskeletal: Present ROM normal NEUROLOGICAL Neurological: Present alert, Present oriented x 3, Present no gross motor or sensory deficits PSYCHOLOGICAL Psychological: Present mood/affect normal, Present judgement normal Procedures Laceration Laceration: Laceration 1 Site: hand (L 4th) Side: left Size (cm): 2 Description: stellate Depth: simple, single layer Local anesthesia: lidocaine 1% Pre-repair: wound exposed Skin layer closed with: nylon Size (cm): 5-0 Technique: simple, interrupted Number of sutures: 3 Additional comments wound care for bleeding distal L 5th finger. Avulsion injury approximately 1 cm in diameter with injury to nail bed. Tourniquet applied and wound infiltrated with 5 cc's 1% lidocaine with epi. Silver nitrate sticks applied to the wound. Hemostasis achieved and patient wound was wrapped with compressive dressing. Assessment & Plan Medical Decision Making MDM 79 year male with simple laceration of the distal 4rd digit and bleeding distal finger avulsion of the 5th digit. 4rd digital laceration repaired with sutures simple interrupted. 5th digit with bleeding at wound site. Tourniquet placed on 5th finger and approximately 4 cc's of 1%lidocaine with epi applied to the woun d. Silver nitrate sticks applied to the entirety of the wound distal 5th digit. 5th digit placed in compressive dressings. Rx Keflex Assessment & Plan Final Impression: (1) Hand laceration (2) Avulsion of finger tip Depart Disposition: HOME, SELF-CARE Last Vital Signs Date Time Temp Pulse Resp B/P (MAP) Pulse Ox O2 Delivery O2 Flow Rate FiO2 03/31/20 17:45 70 16 99 03/31/20 16:31 98.4 143/103 Home Meds Reported Medications Acetaminophen/Codeine* (TYLENOL # 3*) 1 Ea Tab, MG PO Q4HR, #30 02/29/20 [Astelin] No Conflict Check, NA BID 02/23/20 Fluticasone Propionate (Flonase Allergy Relief) 9.9 Ml Easley.susp, NA 02/23/20 Testosterone (Testosterone) 30 Mg/1.5 Ml Sharda..sports administrator, INJ Q10 DAYS 02/21/20 Warfarin Sodium* (COUMADIN*) 3 Mg Tablet, 3 MG PO 1699, #7 TAB 02/21/20 Triamterene/Hydrochlorothiazid (MAXZIDE 37.5 MG-25 MG TABLET) 1 Each Tablet, PO DAILY 02/21/20 STEVEN SHEPHERD DO Mar 31, 2020 16:17
[2020-03-31] MEDS ORDERED: LIDOCAINE 1% 5ML-MPF INJ ONE (16:30)
[2020-03-31] MEDS ORDERED: SILVER NITRATE SWABS ONE (16:47)
[2020-03-31] MEDS ORDERED: LIDOCAINE 1% W/EPINEPHRINE 20 ML VIAL ONE (16:48)
[2020-03-31] MEDS ORDERED: SILVER NITRATE SWABS TOP ONE (17:30)
[2020-03-31] MEDS ORDERED: LIDOCAINE 1% W/EPINEPHRINE 20 ML VIAL INJ NR (17:30)
[2020-03-31 17:45] VITALS: BP 137/85
== END 2020-03-31 17:49 | disposition home or self-care (01) ==
LOC: ER 16:05
DX: S61.307A Unspecified open wound of left little finger with damage to nail, initial encounter (principal); W27.1XXA Contact with garden tool, initial encounter; Y93.H2 Activity, gardening and landscaping; Y92.007 Garden or yard of unspecified non-institutional (private) residence as the place of occurrence of the external cause; I10 Essential (primary) hypertension; K21.9 Gastro-esophageal reflux disease without esophagitis; Z85.46 Personal history of malignant neoplasm of prostate; Z86.718 Personal history of other venous thrombosis and embolism
CPT/HCPCS: 99283

== ENCOUNTER 2024-11-18 19:48 | Inpatient (IN) | payer MEDICARE ==
[~2024-11-18] VITALS: Ht 180.3 cm; Wt 90.7 kg
[~2024-11-18 19:48] MED LIST changes: -ATORVASTATIN CA20 MG PO; -LOSARTAN POTASS25 MG PO; -MONTELUKAST SOD10 MG PO; -PLAVIX75 MG PO
[2024-11-18 20:37] VITALS: TEMP 97.9
[2024-11-18 22:15] VITALS: PULSE 91; RESP 16; O2SAT 98
[2024-11-19] VITALS (9 sets, daily range): BP systolic 95–158; BP diastolic 64–106; PULSE 91–105; RESP 16–22; TEMP 97.5–98.6; O2SAT 92–100
[2024-11-19 00:04] LABS: BASOPHILS % 0.3 % (0.0-1.0); EOSINOPHILS % 0.3 % (0.0-6.0); HEMATOCRIT 46.5 % (38.2-49.6); HEMOGLOBIN 14.7 g/dL (14.0-18.0); LYMPHOCYTES # (AUTO) 0.6 (1.0-3.2); LYMPHOCYTES % 4.3 % (18.0-39.1); MEAN CORPUSCULAR HEMOGLOBIN 24.7 pg (28-32); MEAN CORPUSCULAR HGB CONC 31.6 g/dL (31-35); MONOCYTES % 7.3 % (4.4-11.3); NEUTROPHILS # (AUTO) 12.4 (2.1-6.9); NEUTROPHILS % 87.4 % (38.7-80.0); PLATELET COUNT 290 x10e3/uL (140-360); RED BLOOD COUNT 5.96 x10e6/uL (4.3-5.7); RED CELL DISTRIBUTION WIDTH 18.6 % (11.7-14.4)
[2024-11-19 00:19] LABS: INR 1.08; PROTHROMBIN TIME 14.7 seconds (11.9-14.5)
[2024-11-19 00:27] LABS: ALBUMIN 3.3 g/dL (3.5-5.0); ALBUMIN/GLOBULIN RATIO 0.8 (0.8-2.0); ANION GAP 15.8 mmol/L (8-16); BILIRUBIN,TOTAL 0.6 mg/dL (0.2-1.2); CALCIUM 8.4 mg/dL (8.4-10.2); CREATININE, SERUM 1.16 mg/dL (0.72-1.25); POTASSIUM 3.8 mmol/L (3.5-5.1); TOTAL PROTEIN 7.4 g/dL (6.5-8.1)
[2024-11-19] MEDS: SODIUM CHLORIDE 0.9% 1000ML 1,000 ML IV SCH (01:36)
[2024-11-19] MEDS: ONDANSETRON HCL INJ 2MG/ML 2ML 2 MG/ML VIAL IV PRN (03:08)
[2024-11-19] MEDS: Morphine 2mg Syringe 2 MG/ML SYR IV PRN (03:08)
[2024-11-19] MEDS ORDERED: LOSARTAN POTASS25 MG PO (08:30)
[2024-11-19] MEDS ORDERED: PLAVIX75 MG PO (08:30)
[2024-11-19 08:31] LABS: BASOPHILS # (AUTO) 0.1 (0.0-0.1); BASOPHILS % 0.3 % (0.0-1.0); HEMOGLOBIN 14.6 g/dL (14.0-18.0); LYMPHOCYTES # (AUTO) 0.3 (1.0-3.2); LYMPHOCYTES % 1.1 % (18.0-39.1); MEAN CORPUSCULAR HEMOGLOBIN 24.8 pg (28-32); MEAN CORPUSCULAR HGB CONC 31.7 g/dL (31-35); MEAN CORPUSCULAR VOLUME 78.1 fL (81-99); MONOCYTES # (AUTO) 1.7 (0.2-0.8); MONOCYTES % 7.6 % (4.4-11.3); NEUTROPHILS # (AUTO) 20.6 (2.1-6.9); NEUTROPHILS % 90.3 % (38.7-80.0); PLATELET COUNT 281 x10e3/uL (140-360); RED BLOOD COUNT 5.89 x10e6/uL (4.3-5.7); RED CELL DISTRIBUTION WIDTH 18.6 % (11.7-14.4); WHITE BLOOD COUNT 22.88 x10e3/uL (4.8-10.8)
[2024-11-19] MEDS ORDERED: ATORVASTATIN CA20 MG PO (08:33)
[2024-11-19] MEDS ORDERED: MONTELUKAST SOD10 MG PO (08:34)
[2024-11-19 08:41] LABS: ALBUMIN 3.4 g/dL (3.5-5.0); ALBUMIN/GLOBULIN RATIO 0.8 (0.8-2.0); ANION GAP 19.1 mmol/L (8-16); BILIRUBIN,TOTAL 1.1 mg/dL (0.2-1.2); CALCIUM 8.4 mg/dL (8.4-10.2); CREATININE, SERUM 1.64 mg/dL (0.72-1.25); POTASSIUM 4.1 mmol/L (3.5-5.1); TOTAL PROTEIN 7.6 g/dL (6.5-8.1)
[2024-11-19] MEDS ORDERED: METOPROLOL TARTRATE INJ 1 MG/ML VIAL IV PRN (08:45)
[2024-11-19] MEDS ORDERED: SIMETHICONE 80 MG CHEW PO PRN (08:45)
[2024-11-19] MEDS ORDERED: MELATONIN 3 MG TAB PO PRN (08:45)
[2024-11-19] MEDS ORDERED: ALBUTEROL/IPRATROPIUM 3 ML NEB NEB PRN (08:45)
[2024-11-19] MEDS ORDERED: DOCUSATE SODIUM 100 MG CAP PO PRN (08:45)
[2024-11-19] MEDS: HYDROMORPHONE 1MG/1ML INJ IV PRN (09:22)
[2024-11-19] MEDS: LOSARTAN POTASSIUM 25 MG TAB PO SCH (09:45)
[2024-11-19] MEDS: MONTELUKAST SODIUM 10 MG TAB PO SCH (09:45)
[2024-11-19 13:17] LABS: HEMOGLOBIN 13.8 g/dL (14.0-18.0)
[2024-11-19 14:21] LABS: BAND NEUTROPHILS % (MANUAL) 1 %; LYMPHOCYTES % (MANUAL) 2 % (19-48); MONOCYTES % (MANUAL) 6 % (3.4-9.0); NEUTROPHILS % (MANUAL) 91 % (40-74); PLATELET ESTIMATE ADEQUATE; PLATELET MORPHOLOGY COMMENT NORMAL; RBC MORPHOLOGY COMMENT NORMAL
[2024-11-19] MEDS: ATORVASTATIN 20 MG TAB PO SCH (22:16)
[2024-11-19 23:39] LABS: INR 1.2; PROTHROMBIN TIME 15.9 seconds (11.9-14.5)
[2024-11-20] VITALS (11 sets, daily range): BP systolic 90–105; BP diastolic 61–70; PULSE 88–100; RESP 18–22; TEMP 97.5–98.2; O2SAT 93–100
[2024-11-20 06:59] LABS: BASOPHILS # (AUTO) 0.1 (0.0-0.1); BASOPHILS % 0.5 % (0.0-1.0); EOSINOPHILS # (AUTO) 0.5 (0.0-0.4); EOSINOPHILS % 2.8 % (0.0-6.0); HEMATOCRIT 39.3 % (38.2-49.6); HEMOGLOBIN 12.4 g/dL (14.0-18.0); LYMPHOCYTES # (AUTO) 0.6 (1.0-3.2); LYMPHOCYTES % 3.4 % (18.0-39.1); MEAN CORPUSCULAR HEMOGLOBIN 24.8 pg (28-32); MEAN CORPUSCULAR HGB CONC 31.6 g/dL (31-35); MEAN CORPUSCULAR VOLUME 78.6 fL (81-99); MONOCYTES # (AUTO) 1.5 (0.2-0.8); MONOCYTES % 8.5 % (4.4-11.3); NEUTROPHILS # (AUTO) 14.8 (2.1-6.9); NEUTROPHILS % 84.3 % (38.7-80.0); PLATELET COUNT 246 x10e3/uL (140-360); RED CELL DISTRIBUTION WIDTH 17.7 % (11.7-14.4); WHITE BLOOD COUNT 17.59 x10e3/uL (4.8-10.8)
[2024-11-20 07:29] LABS: ANION GAP 14.1 mmol/L (8-16); CALCIUM 7.7 mg/dL (8.4-10.2); POTASSIUM 4.1 mmol/L (3.5-5.1)
[2024-11-20] MEDS: ACETAMINOPHEN 325 MG TAB PO PRN (14:12)
[2024-11-21] VITALS (13 sets, daily range): BP systolic 116–134; BP diastolic 68–89; PULSE 85–99; RESP 18–22; TEMP 97.6–98.3; O2SAT 93–100
[2024-11-21 06:02] LABS: BASOPHILS # (AUTO) 0.1 (0.0-0.1); BASOPHILS % 0.4 % (0.0-1.0); EOSINOPHILS # (AUTO) 0.6 (0.0-0.4); EOSINOPHILS % 3.5 % (0.0-6.0); HEMATOCRIT 38.5 % (38.2-49.6); LYMPHOCYTES # (AUTO) 0.6 (1.0-3.2); LYMPHOCYTES % 3.4 % (18.0-39.1); MEAN CORPUSCULAR HEMOGLOBIN 24.8 pg (28-32); MEAN CORPUSCULAR HGB CONC 31.2 g/dL (31-35); MEAN CORPUSCULAR VOLUME 79.7 fL (81-99); MONOCYTES # (AUTO) 1.3 (0.2-0.8); MONOCYTES % 7.6 % (4.4-11.3); NEUTROPHILS # (AUTO) 14.2 (2.1-6.9); NEUTROPHILS % 84.6 % (38.7-80.0); PLATELET COUNT 252 x10e3/uL (140-360); RED BLOOD COUNT 4.83 x10e6/uL (4.3-5.7); WHITE BLOOD COUNT 16.81 x10e3/uL (4.8-10.8)
[2024-11-21 06:44] LABS: ANION GAP 15.2 mmol/L (8-16); CALCIUM 7.9 mg/dL (8.4-10.2); CREATININE, SERUM 1.12 mg/dL (0.72-1.25); POTASSIUM 4.2 mmol/L (3.5-5.1)
[2024-11-21] MEDS ORDERED: MIDAZOLAM HCL 2 MG/2 ML VIAL ONE (16:05)
[2024-11-21] MEDS ORDERED: FENTANYL CITRATE/PF 100MCG/2 ML INJ ONE (16:05)
[2024-11-21] MEDS ORDERED: PROPOFOL IV EMULSION 10 MG/ML 20 ML VIAL ONE (16:34)
[2024-11-21] MEDS ORDERED: SODIUM CHLORIDE 0.9% 100 ML ONE (16:56)
[2024-11-21] MEDS ORDERED: PHENYLEPHRINE HCL 1% 10 MG/ML VIAL ONE (16:56)
[2024-11-21] MEDS ORDERED: PHENAZOPYRIDINE HCL 100 MG TAB PO PRN (17:15)
[2024-11-22] MEDS: ACETAMINOPHEN/CODEINE 300MG - 30MG TAB PO PRN (00:46)
[2024-11-22 03:08] VITALS: BP 115/82; PULSE 93; RESP 18; TEMP 97.8; O2SAT 97
[2024-11-22 07:13] LABS: BASOPHILS # (AUTO) 0.1 (0.0-0.1); BASOPHILS % 0.4 % (0.0-1.0); EOSINOPHILS # (AUTO) 0.3 (0.0-0.4); EOSINOPHILS % 2.1 % (0.0-6.0); HEMATOCRIT 38.5 % (38.2-49.6); HEMOGLOBIN 11.9 g/dL (14.0-18.0); LYMPHOCYTES # (AUTO) 0.7 (1.0-3.2); LYMPHOCYTES % 4.4 % (18.0-39.1); MEAN CORPUSCULAR HEMOGLOBIN 24.8 pg (28-32); MEAN CORPUSCULAR HGB CONC 30.9 g/dL (31-35); MEAN CORPUSCULAR VOLUME 80.2 fL (81-99); MONOCYTES # (AUTO) 1.4 (0.2-0.8); MONOCYTES % 9.7 % (4.4-11.3); NEUTROPHILS # (AUTO) 12.3 (2.1-6.9); NEUTROPHILS % 82.8 % (38.7-80.0); PLATELET COUNT 244 x10e3/uL (140-360); RED CELL DISTRIBUTION WIDTH 18.1 % (11.7-14.4); WHITE BLOOD COUNT 14.81 x10e3/uL (4.8-10.8)
[2024-11-22 07:15] VITALS: PULSE 80; RESP 18; O2SAT 93
[2024-11-22 07:44] LABS: ANION GAP 15.3 mmol/L (8-16); CALCIUM 8.1 mg/dL (8.4-10.2); CREATININE, SERUM 0.75 mg/dL (0.72-1.25); POTASSIUM 4.3 mmol/L (3.5-5.1)
[2024-11-22 08:03] VITALS: BP 117/80; PULSE 88; RESP 20; TEMP 97.8; O2SAT 94
[2024-11-22 10:26] VITALS: BP 117/80; PULSE 88; RESP 20; TEMP 97.8; O2SAT 94
[2024-11-22 12:53] VITALS: BP 118/83; PULSE 95; RESP 20; TEMP 97.7; O2SAT 98
== END 2024-11-22 15:05 | disposition home or self-care (01) | DRG 699 ==
LOC: ER 19:53 → ERHOLD 11-19 00:08 → MED/SURG3 11-19 05:00
PROVIDERS: ADMIT Internal Medicine; ATTEND Internal Medicine
PROC: 0T9B70Z Drainage of Bladder with Drainage Device, Via Natural or Artificial Opening (ICD-10-PCS; principal; 2024-11-18)
PROC: 0T7D8ZZ Dilation of Urethra, Via Natural or Artificial Opening Endoscopic (ICD-10-PCS; 2024-11-21)
PROC: 0TCB8ZZ Extirpation of Matter from Bladder, Via Natural or Artificial Opening Endoscopic (ICD-10-PCS; 2024-11-21)
PROC: 0T9B70Z Drainage of Bladder with Drainage Device, Via Natural or Artificial Opening (ICD-10-PCS; 2024-11-21)
PROC: BT141ZZ Fluoroscopy of Kidneys, Ureters and Bladder using Low Osmolar Contrast (ICD-10-PCS; 2024-11-21)
DX: S37.22XA Contusion of bladder, initial encounter (principal); D68.2 Hereditary deficiency of other clotting factors; D68.9 Coagulation defect, unspecified; J96.10 Chronic respiratory failure, unspecified whether with hypoxia or hypercapnia; N39.0 Urinary tract infection, site not specified; N17.9 Acute kidney failure, unspecified; N20.0 Calculus of kidney; N99.111 Postprocedural bulbous urethral stricture, male; J84.10 Pulmonary fibrosis, unspecified; Z99.81 Dependence on supplemental oxygen; I10 Essential (primary) hypertension; N40.1 Benign prostatic hyperplasia with lower urinary tract symptoms; R33.8 Other retention of urine; D50.9 Iron deficiency anemia, unspecified; R31.0 Gross hematuria; I25.10 Atherosclerotic heart disease of native coronary artery without angina pectoris; R53.81 Other malaise; N21.0 Calculus in bladder; K21.9 Gastro-esophageal reflux disease without esophagitis; Z79.02 Long term (current) use of antithrombotics/antiplatelets; Z79.51 Long term (current) use of inhaled steroids; Z79.890 Hormone replacement therapy; Z95.5 Presence of coronary angioplasty implant and graft; Z86.711 Personal history of pulmonary embolism; Z86.718 Personal history of other venous thrombosis and embolism; Z85.46 Personal history of malignant neoplasm of prostate; Z92.21 Personal history of antineoplastic chemotherapy; Z92.3 Personal history of irradiation; X58.XXXA Exposure to other specified factors, initial encounter; Z91.011 Allergy to milk products
CPT/HCPCS: 36415; 51703; 74176; 74420; 80048; 80053; 81241; 81400; 82948; 85014; 85018; 85025; 85303; 85306; 85610; 87086; 88300; 93970; 94799; 99252; 99285; C1758; C1769; J1171; J2250; J2270; J2371; J2405; J2543; J7030; J7050

== ENCOUNTER → 2024-11-18 | Outpatient (RCR) | payer MEDICARE ==
[~2024-11-18] MED LIST changes: +ATORVASTATIN CA20 MG PO; +LOSARTAN POTASS25 MG PO; +MONTELUKAST SOD10 MG PO; +PLAVIX75 MG PO
== END ==
LOC: PT 11-10 10:45
PROVIDERS: ATTEND Specialist
DX: M47.816 Spondylosis without myelopathy or radiculopathy, lumbar region (principal); M54.50 Low back pain, unspecified; M62.81 Muscle weakness (generalized)

== ENCOUNTER 2024-11-22 12:27 | Outpatient (RCR) | payer MEDICARE ==
[~2024-11-22 12:27] MED LIST changes: +ATORVASTATIN CA20 MG PO; +LOSARTAN POTASS25 MG PO; +MONTELUKAST SOD10 MG PO; +PLAVIX75 MG PO
== END 2024-12-16 ==
LOC: PT 12:27
PROVIDERS: ATTEND Specialist
DX: M47.816 Spondylosis without myelopathy or radiculopathy, lumbar region (principal); M54.50 Low back pain, unspecified; M62.81 Muscle weakness (generalized)

== ENCOUNTER 2024-11-25 17:04 | Emergency (ER) | payer MEDICARE ==
[~2024-11-25] VITALS: Ht 180.3 cm; Wt 90.7 kg
[2024-11-25 17:36] VITALS: PULSE 86; RESP 18; O2SAT 99
[2024-11-25 19:15] VITALS: PULSE 87; RESP 18; O2SAT 100
[2024-11-25 19:53] VITALS: PULSE 81; RESP 16; TEMP 97.8; O2SAT 99
== END 2024-11-25 20:07 | disposition home or self-care (01) ==
LOC: ER 17:54
DX: Z46.6 Encounter for fitting and adjustment of urinary device (principal); I10 Essential (primary) hypertension; J44.9 Chronic obstructive pulmonary disease, unspecified; J45.909 Unspecified asthma, uncomplicated; K21.9 Gastro-esophageal reflux disease without esophagitis; Z79.01 Long term (current) use of anticoagulants; Z85.46 Personal history of malignant neoplasm of prostate; Z86.711 Personal history of pulmonary embolism; Z87.442 Personal history of urinary calculi; Z95.5 Presence of coronary angioplasty implant and graft
CPT/HCPCS: 94799; 99284